=== PATIENT | male | born 1960 | race Caucasian/White ===

== ENCOUNTER 2025-02-06 17:23 | Emergency (ER) | payer OTHER, SELFPAY ==
[2025-02-06 18:03] VITALS: BP 172/88
[2025-02-06] MEDS: DILAUDID 1 MG IV (18:12)
[2025-02-06] MEDS: ZOFRAN 4 MG IV (18:13)
[2025-02-06] MEDS: NSS 1000 IV (18:13)
[2025-02-06 18:24] LABS: % Basophils 0.5 % (0-2); % Eosinophils 0.7 % (0-6); % Immature Granulocytes 0.5 % (0-0.5); % Lymphocytes 7.4 % (20.5-51.1); % Monocytes 7.3 % (1.7-9.3); % Neutrophils 83.6 % (42.2-75.2); Absolute Basophils 0.1 10^3/uL (0-0.2); Absolute Eosinophils 0.1 10^3/uL (0-0.7); Absolute Immature Granulocytes 0.1 10^3/uL (0-0.05); Absolute Lymphocytes 1.3 10^3/uL (1.2-3.4); Absolute Monocytes 1.2 10^3/uL (0.1-0.6); Absolute Neutrophils 14.1 10^3/uL (1.4-6.5); Hematocrit 51.1 % (39.0-52.0); Hemoglobin 17.9 g/dL (13.0-18.0); Mean Corpuscular Hgb 34.4 pg (27.0-31.0); Mean Corpuscular Volume 98.1 fL (80.0-94.0); Mean Platelet Volume 9.5 fL (7.4-10.4); Nucleated Red Blood Cells % 0 % (-); Platelet Count 196 10^3/uL (130-400); Red Blood Cell Count 5.21 10^6/uL (4.70-6.10); Red Cell Dist. Width 12.4 % (11.5-14.5); White Blood Cell Count 16.9 10^3/uL (4.8-10.8)
--- NOTE | 2025-02-06 18:34 | ED.GENMED ---
Addendum entered and electronically signed by Nithin Kendall DO 02/06/25 20:48:
Update, ultrasound report noted patient fits clinically we will treat with antibiotics
GC chlamydia has been sent
Original Note:
History of Present Illness
General
Chief Complaint: Back Pain
Source: patient and family
Exam Limitations: none
Time Seen by Provider: 02/06/25 17:51
Nursing documentation reviewed up to this point in time: agreed with
History of Present Illness
History of Present Illness:
64-year-old male prior history of esophageal cancer presents with left low back pain radiates to his left groin and testicle, also into his left chest, had blood in his semen recently saw his PCP started on some antibiotics and improved, saw
chiropractor yesterday did not help much with the back, told he should ice it he is able to do that because it would make him cold, been using Naprosyn without much relief, no narcotic pain use,
Past History
Past History
ED Past Medical History: Cancer (Cancer the oropharynx), COPD, GERD, HTN, Hypothyroidism and Other (Invasive squamous carcinoma of the oropharynx, Graves' disease,)
ED Past Surgical History: Other (Tracheostomy/G-tube, eye surgery, thyroid surgery)
Social History
Tobacco: Smoker
Alcohol: Occasional
Drug: None
Personal:
Living: with family
Employment: Employed
Family History
Family History: Other (Noncontributory)
Review of Systems
Review of Systems
All Other Systems: Not applicable
Constitutional: Denies fever or fatigue
EENT: Reports no symptoms
Respiratory: Reports trouble breathing
Cardiac: Denies chest pain
ABD/GI: Reports abdominal pain, nausea and vomiting
: Reports bleeding (Blood in his semen previously); Denies dysuria
Musculoskeletal: Reports back pain
Neurological: Reports no symptoms
Endocrine: Reports no symptoms
Phy Exam
Physical Exam
Physical Exam:
Physical Exam
General: 64-year-old male looks uncomfortable due to pain
Neck: No jaundice
Heart: Regular
Lungs: No wheeze
Abdomen: Tender in the left lower abdomen mild tenderness in the left hemiscrotum no obvious
Neuro: alert and oriented. no focal neurological deficits
Skin: no rash
Psychiatric: well kept. interactive and cooperative
Extremities: no edema.
Course
Orders/Labs/Results
Orders:
Orders
02/06/25 18:01
CT Abd/pel Without Iv Or Oral Urgent
Comment:
Reason For Exam: ll q pain
Urinalysis Reflex To Culture Urgent
Date Specimen was Collected: 02/06/25
Time Specimen was Collected: 20:15
Scrotum US [US Scrotum] Urgent
Comment:
Reason For Exam: left testicle pain
02/06/25 18:02
0.9% Sodium Chloride 1000 ml [Nss] 1,000 ml IV BOLUS
HYDROmorphone [Dilaudid] 1 mg IV NOW STA
Ondansetron Injectable [Zofran] 4 mg IV NOW STA
02/06/25 18:08
Basic Metabolic Panel Urgent
Complete Blood Count/With Diff Urgent
Lipase Urgent
02/06/25 18:34
CR Chest - 2 Views Urgent
Comment:
Reason For Exam: cob
02/06/25 18:38
Nicotine [Nicoderm Transdermal] 21 mg .ROUTE .STK-MED ONE
02/06/25 20:16
Chlamydia/GC by PCR Urgent
NATHALIA Source: Urine
Specimen Description:
Source:: URINE
Date Specimen was Collected: 02/06/25
Time Specimen was Collected: 20:15
02/06/25 20:22
Dexamethasone Sod Phosphate [Decadron] 10 mg IV NOW STA
diazePAM [Valium Injection] 5 mg IV NOW STA
02/07/25 08:00
Nicotine [Nicoderm Transdermal] 21 mg TRANSDERM DAILY
Abnormal Lab Results
02/06/25
18:08
WBC 16.9 H 10^3/uL
(4.8-10.8)
MCV 98.1 H fL
(80.0-94.0)
MCH 34.4 H pg
(27.0-31.0)
Abs Immat Gran (auto) 0.1 H 10^3/uL
(0-0.05)
Absolute Neuts (auto) 14.1 H 10^3/uL
(1.4-6.5)
Absolute Monos (auto) 1.2 H 10^3/uL
(0.1-0.6)
Neutrophils % 83.6 H %
(42.2-75.2)
Lymphocytes % 7.4 L %
(20.5-51.1)
02/06/25 18:08
02/06/25 18:08
Vital Signs
Initial and Last Documented VS:
Initial Vital Signs
Pulse Resp
99 18
02/06/25 17:27 02/06/25 17:27
Last Documented Vital Signs
Temp Pulse Resp BP Pulse Ox
97.6 F 100 24 186/109 86
02/06/25 18:03 02/06/25 19:15 02/06/25 19:15 02/06/25 19:01 02/06/25 19:15
MDM/Problems Addressed
Differential Diagnosis Includes:
Renal colic torsion malignancy muscle strain radiculopathy pneumonia pneumothorax
MDM/Problems Addressed:
Left low back pain
Chronic conditions affecting care: Previous abdomnial surgery and Cancer
Acute Exacerbation and/or Progression of Chronic Illness: Previous abdomnial surgery and Cancer
*Radiology
Radiology exam reviewed: preliminary read by ED provider
*Pulse Oximetry
Patient hypoxic: no
*Critical Care Note
Total Time (30-74mins, 75-104mins- exclusive of procedures): Not Applicable
Update Note
Update Note:
8 PM update chest x-ray noted, CT report noted ultrasound pending labs are noted currently did finish course of antibiotics recently for urinary tract issues/hemospermia
Has a lot of DJD on CT this may be his ultimate diagnosis with a radiculopathy
Urinalysis looks clear formal UA is pending, patient looks improved, has had spinal surgery for 5 years ago at [facility] he does not want to follow-up there
ED Attending Note
-
Portions of this chart may have been created with voice recognition software.� Occasional wrong word or��sound alike� substitutions may have occurred due to the inherent limitations of voice recognition software.
Discharge Plan
Departure
Condition: Good
Instructions: Low Back Pain (DC), Radiculopathy (DC)
Prescriptions:
New
oxycodone-acetaminophen [Percocet] 5-325 mg tablet
1 tab PO Q6HPRN PRN (Reason: pain) Qty: 10 0RF
metaxalone 800 mg tablet
800 mg PO QID PRN (Reason: muscle pain) Qty: 20 0RF
methylprednisolone [Medrol (Abraham)] 4 mg tablets,dose pack
See Rx Instructions .ROUTE .COMPLEX Qty: 21 0RF
Rx Instructions:
for 6 days
No Action
levothyroxine 125 MCG tablet
125 mcg PO MOTUWETHFRSA
omeprazole 20 MG capsule,delayed release(DR/EC)
20 mg PO DAILY
levothyroxine 125 mcg tablet
62.5 mcg PO ROWE
Breztri Aerosphere 160-9-4.8 mcg/actuation HFA aerosol inhaler
2 inh INHALATION R DAILY
levofloxacin 750 mg tablet
750 mg PO DAILY Qty: 14 0RF
metronidazole 500 mg tablet
500 mg PO TID Qty: 42 0RF
Referrals:
Elaine Colvin DO [Family Provider] - Next open appointment
Interventions
Interventions:
*Risk Screen - Suicide Last Done: 02/06/25 18:04
*General Assessment Last Done: 02/06/25 18:04
*Neglect/Abuse Screening Last Done: 02/06/25 18:04
*ED- Fall Risk Assessment Last Done: 02/06/25 18:04
*ED COVID-19 Vaccine History Last Done: 02/06/25 18:04
ED-Musculoskeletal Assessment Last Done: 02/06/25 18:54
Discharge Date and Time
Print Language: YORUBA
[2025-02-06] MEDS: NICODERM TRANSDERMAL 21 MG TRANSDERM (18:58)
[2025-02-06 18:59] LABS: Blood Urea Nitrogen 17 mg/dl (9-20); Carbon Dioxide 30 mmol/L (22-30); Chloride 99 mmol/L (98-107); Glucose 96 mg/dl (70-99); Lipase 62 U/L (23-300); Sodium 138 mmol/L (135-145); eGFR > 60.00
[2025-02-06 19:01] VITALS: BP 186/109
[2025-02-06 20:26] VITALS: BP 194/99
[2025-02-06] MEDS: DECADRON 10 MG IV (20:26)
[2025-02-06] MEDS: VALIUM INJECTION 5 MG IV (20:26)
[2025-02-06 20:30] LABS: Urine Albumin 1+ (Neg - Trace); Urine Bilirubin Negative (Negative); Urine Character Clear (Clear); Urine Color Yellow; Urine Glucose Negative (Negative); Urine Ketone Negative (Negative); Urine Leukocyte Negative (Negative); Urine Nitrite Negative (Negative); Urine Occult Blood 1+ (Negative); Urine Urobilinogen Negative (Neg - 1+)
[2025-02-06 20:43] LABS: Urine Squamous Cell 0-2 /LPF (Few)
[2025-02-06 20:44] LABS: Urine Bacteria Few (Negative); Urine White Cell 0-2 /HPF (0-5)
[2025-02-06 21:00] VITALS: BP 152/91
[2025-02-06] MEDS: ROCEPHIN 1000 MG IV (21:15)
== END 2025-02-06 21:26 | disposition home or self-care (01) ==
LOC: EMR 17:23
PROVIDERS: EMERGENCY PHYSICIAN Emergency Medicine; FAMILY PHYSICIAN Family Medicine
DX: M54.50 Low back pain, unspecified (principal); R10.30 Lower abdominal pain, unspecified; N50.812 Left testicular pain; R07.89 Other chest pain; R11.2 Nausea with vomiting, unspecified; I10 Essential (primary) hypertension; K21.9 Gastro-esophageal reflux disease without esophagitis; E03.9 Hypothyroidism, unspecified; E05.00 Thyrotoxicosis with diffuse goiter without thyrotoxic crisis or storm; F41.9 Anxiety disorder, unspecified; F32.A Depression, unspecified; F17.200 Nicotine dependence, unspecified, uncomplicated; Z85.01 Personal history of malignant neoplasm of esophagus; Z87.01 Personal history of pneumonia (recurrent)
CPT/HCPCS: 99285; 96374; 96375 ×4; 96361; 71046; 74176; 76870; 80048; 81003; 81015; 83690; 85025; 87491; 87591; 93976

== ENCOUNTER → 2025-03-04 10:01 | Outpatient (REF) | payer OTHER, SELFPAY | LOC: RAD 10:01 | PROVIDERS: ATTENDING PHYSICIAN Internal Medicine; FAMILY PHYSICIAN Family Medicine | DX: R05.9 Cough, unspecified (principal); M47.816 Spondylosis without myelopathy or radiculopathy, lumbar region | CPT/HCPCS: 71046; 72110 ==

== ENCOUNTER → 2025-03-07 13:40 | Outpatient (REF) | payer OTHER, SELFPAY | LOC: HWRAD 13:40 | PROVIDERS: ATTENDING PHYSICIAN Family Medicine | DX: J43.9 Emphysema, unspecified (principal) | CPT/HCPCS: 71250 ==

== ENCOUNTER → 2025-03-11 13:47 | Outpatient (REF) | payer OTHER, SELFPAY | LOC: MRI 3T 13:47 | PROVIDERS: ATTENDING PHYSICIAN Internal Medicine; FAMILY PHYSICIAN Family Medicine | DX: M47.816 Spondylosis without myelopathy or radiculopathy, lumbar region (principal) | CPT/HCPCS: 72148 ==